=== PATIENT | male | born 1965 | race American Indian/Alaskan Native ===

== ENCOUNTER 2019-10-15 18:20 | Emergency (ER) | payer SELFPAY ==
--- NOTE | 2019-10-15 19:18 | Event Note ---
ED Screening Note ED Screening Note: Mr. Bland is a 54 yo male with hx of tobacco abuse who presents with left leg swelling and erythema. No trauma. This initial assessment/diagnostic orders/clinical plan/treatment(s) is/are subject to change based on patients health status, clinical progression and re- assessment by fellow clinical providers in the ED. Further treatment and workup at subsequent clinical providers discretion. Patient/guardian urged not to elope from the ED as their condition may be serious if not clinically assessed and managed. Initial orders include: labs, duplex
[2019-10-15 19:36] LABS: Basophils # (Auto) 0.1 K/mm3 (0.0-0.1); Basophils % (Auto) 0.8 % (0.0-1.8); Eosinophils # (Auto) 0.1 K/mm3 (0.0-0.4); Lymphocytes # (Auto) 2.4 K/mm3 (1.2-5.4); Lymphocytes % (Auto) 34.6 % (13.4-35.0); Mean Corpuscular HGB Conc 34 % (32-34); Mean Corpuscular Volume 87 fl (84-94); Monocytes # (Auto) 0.8 K/mm3 (0.0-0.8); Monocytes % (Auto) 10.8 % (0.0-7.3); Platelet Count 207 K/mm3 (140-440)
[2019-10-15 19:47] LABS: INR 0.95 (0.87-1.13); Partial Thromboplastin Time 26.8 Sec. (24.2-36.6)
[2019-10-15 19:55] LABS: BUN/Creatinine Ratio 12; Blood Urea Nitrogen 13 mg/dL (9-20); Calcium 8.5 mg/dL (8.4-10.2); Hemolysis Index 6
--- NOTE | 2019-10-15 21:04 | Emergency Department Report ---
<RONY FAULKNER - Last Filed: 10/15/19 21:37> ED Lower Extremity HPI - General Chief Complaint: Extremity Injury, Lower Stated Complaint: LEFT LEG SWOLLEN Time Seen by Provider: 10/15/19 19:16 Source: patient Mode of arrival: Ambulatory Limitations: No Limitations - History of Present Illness Initial Comments: This is a 54-year-old -[place] male who presents to the emergency room with left lower extremity swelling, redness, warmth, and pain for 3 days. No significant past medical history. Current smoker. Patient states he does not recall injury. Reports pain is worse with weightbearing. He denies chest pain, dyspnea, palpitations, cough, fever, chills. MD Complaint: leg injury (left) Onset/Timin -: days(s) Injury: Leg: Left Severity: severe Severity scale (0 -10): 9 Improves With: nothing Worsens With: weight bearing, movement, palpation Associated Symptoms: swelling, able to partially bear weight, ambulatory. denies: snap/pop sensation, numbness, tingling Treatments Prior to Arrival: NSAIDS - Related Data Previous Rx's Medication Instructions Recorded Last Taken Type Acetaminophen/Codeine [Tylenol 1 tab PO Q6H PRN #12 tab 10/15/19 Unknown Rx /Codeine # 3 tab] Sulfamethoxazole/Trimethoprim 1 each PO BID #20 tablet 10/15/19 Unknown Rx [Bactrim DS TAB] Allergies Allergy/AdvReac Type Severity Reaction Status Date / Time No Known Allergies Allergy Unverified 10/15/19 18:23 ED Review of Systems Constitutional: denies: chills, fever Respiratory: denies: cough, shortness of breath, wheezing Cardiovascular: denies: chest pain, palpitations Gastrointestinal: denies: abdominal pain, nausea, diarrhea Musculoskeletal: joint swelling (left lower leg swelling and pain), arthralgia (left calf and lower leg pain). denies: back pain Skin: denies: rash, lesions Neurological: denies: headache, weakness, paresthesias Psychiatric: denies: anxiety, depression Hematological/Lymphatic: denies: easy bleeding, easy bruising ED Past Medical Hx - Past Medical History Previous Medical History?: No - Surgical History Past Surgical History?: Yes Additional Surgical History: Right ankle surgery - Social History Smoking Status: Current Every Day Smoker Substance Use Type: Alcohol - Medications Home Medications: Home Medications Medication Instructions Recorded Confirmed Last Taken Type Acetaminophen/Codeine [Tylenol 1 tab PO Q6H PRN #12 tab 10/15/19 Unknown Rx /Codeine # 3 tab] Sulfamethoxazole/Trimethoprim 1 each PO BID #20 tablet 10/15/19 Unknown Rx [Bactrim DS TAB] ED Physical Exam - General Limitations: No Limitations General appearance: alert, in no apparent distress - Respiratory Respiratory exam: Present: normal lung sounds bilaterally. Absent: respiratory distress - Cardiovascular Cardiovascular Exam: Present: regular rate, normal rhythm. Absent: systolic murmur, diastolic murmur, rubs, gallop - GI/Abdominal GI/Abdominal exam: Present: soft, normal bowel sounds - Extremities Exam Extremities exam: Present: normal inspection, normal capillary refill, pedal edema (left lower extremity), calf tenderness (left lower extremity) - Expanded Lower Extremity Exam Left Hip exam: Present: normal inspection, full ROM Upper Leg exam: Present: normal inspection, full ROM Knee exam: Present: normal inspection, full ROM Lower Leg exam: Present: tenderness (erythema, swelling, and tender to palpation on posterior and anterior tibia-fibula from patella to ankle), swelling, erythema Ankle exam: Present: full ROM, swelling, erythema Foot/Toe exam: Present: full ROM, swelling. Absent: tenderness, abrasion, laceration, ecchymosis, deformity, crepidus, erythema Neuro vascular tendon exam: Present: no vascular compromise. Absent: abnormal cap refill (brisk capillary refill) Gait: Positive: observed and limited by pain - Neurological Exam Neurological exam: Present: alert, oriented X3, normal gait - Psychiatric Psychiatric exam: Present: normal affect, normal mood - Skin Skin exam: Present: warm, dry, intact, normal color. Absent: rash ED Lower Extremity MDM - Lab Data Result diagrams: 10/15/19 19:28 10/15/19 19:28 Lab Results 10/15/19 10/15/19 10/15/19 Range/Units 19:28 19:28 19:28 WBC 7.0 (4.5-11.0) K/mm3 RBC 5.40 H (3.65-5.03) M/mm3 Hgb 16.0 H (11.8-15.2) gm/dl Hct 47.0 H (35.5-45.6) % MCV 87 (84-94) fl MCH 30 (28-32) pg MCHC 34 (32-34) % RDW 15.0 (13.2-15.2) % Plt Count 207 (140-440) K/mm3 Lymph % (Auto) 34.6 (13.4-35.0) % [place] % (Auto) 10.8 H (0.0-7.3) % Eos % (Auto) 2.0 (0.0-4.3) % Baso % (Auto) 0.8 (0.0-1.8) % Lymph # 2.4 (1.2-5.4) K/mm3 [place] # 0.8 (0.0-0.8) K/mm3 Eos # 0.1 (0.0-0.4) K/mm3 Baso # 0.1 (0.0-0.1) K/mm3 Seg Neutrophils % 51.8 (40.0-70.0) % Seg Neutrophils # 3.6 (1.8-7.7) K/mm3 PT 12.8 (12.2-14.9) Sec. INR 0.95 (0.87-1.13) APTT 26.8 (24.2-36.6) Sec. Sodium 140 (137-145) mmol/L Potassium 3.9 (3.6-5.0) mmol/L Chloride 105.4 (98-107) mmol/L Carbon Dioxide 24 (22-30) mmol/L Anion Gap 15 mmol/L BUN 13 (9-20) mg/dL Creatinine 1.1 (0.8-1.5) mg/dL Estimated GFR > 60 ml/min BUN/Creatinine Ratio 12 % Glucose 166 H (75-100) mg/dL Calcium 8.5 (8.4-10.2) mg/dL - Medical Decision Making 54-year-old male who presents to the emergency room with unilateral left leg swelling and pain for 3 days. Nontoxic appearing, VSS. No fluid pockets or fluctuance concerning for abscess noted. Low concern osteomyelitis. Denies shortness of breath, cough, or palpitations for concerns heart failure. A BMP, CBC, and coags were obtained. All labs are unremarkable. A Doppler of left lower extremity was ordered for tomorrow morning. Patient will be given Lovenox for coverage of DVT due to possible suspicion. He will also be started on antibiotics for coverage of cellulitis due to presentation. Given order and instructed to return for Doppler ultrasound in the morning to rule out a DVT. He was also instructed to start taking antibiotics as soon as possible. Patient discharged home with strict return instructions. ED Disposition Clinical Impression: Pain and swelling of left lower leg Cellulitis Qualifiers: Site of cellulitis: extremity Site of cellulitis of extremity: lower extremity Laterality: left Qualified Code(s): L03.116 - Cellulitis of left lower limb Disposition: - TO HOME OR SELFCARE Is pt being admited?: No Condition: Stable Instructions: Cellulitis (ED), Arthralgia (ED) Additional Instructions: Return tomorrow morning for ultrasound arterial left leg to rule out a DVT blood clot. Start taking antibiotics as prescribed as soon as possible. Return to the emergency room if difficulty breathing, cough, or uncontrollable pain. Prescriptions: Sulfamethoxazole/Trimethoprim [Bactrim DS TAB] 1 each PO BID #20 tablet Acetaminophen/Codeine [Tylenol /Codeine # 3 tab] 1 tab PO Q6H PRN #12 tab PRN Reason: Pain , Severe (7-10) Referrals: [facility] [Outside] - 3-5 Days [facility] [Outside] - 3-5 Days [facility] [Outside] - 3-5 Days Forms: Work/School Release Form(ED) Time of Disposition: 21:20 <SERGEY MALLOY - Last Filed: 10/15/19 23:50> ED Review of Systems ROS: Stated complaint: LEFT LEG SWOLLEN Other details as noted in HPI ED Course Vital Signs 10/15/19 10/15/19 18:25 21:57 Temperature 98 F 98.1 F Pulse Rate 92 H 82 Respiratory 20 18 Rate Blood Pressure 145/100 Blood Pressure 138/93 [Right] O2 Sat by Pulse 96 98 Oximetry ED Lower Extremity MDM - Lab Data Result diagrams: 10/15/19 19:28 10/15/19 19:28 Critical care attestation.: If time is entered above; I have spent that time in minutes in the direct care of this critically ill patient, excluding procedure time. ED Disposition Is pt being admited?: No Does the pt Need Aspirin: No
[2019-10-15] MEDS ORDERED: ENOXAPARIN 100 MG/1 ML INJ SUB-Q ONE (21:14)
[2019-10-15 21:58] VITALS: BP 138/93
== END 2019-10-15 21:58 | disposition home or self-care (01) ==
LOC: ED 18:20
DX: L03.116 Cellulitis of left lower limb (principal); F17.200 Nicotine dependence, unspecified, uncomplicated; Z98.890 Other specified postprocedural states
CPT/HCPCS: 36415; 80048; 85025; 85610; 85730; 96372; 99284; J1650

== ENCOUNTER 2019-10-16 18:26 | Emergency (ER) | payer SELFPAY ==
--- NOTE | 2019-10-16 18:43 | Event Note ---
ED Screening Note Date of service: 10/16/19 Time: 18:32 ED Screening Note: 54 y o male presents for DVT on left lower extremity This initial assessment/diagnostic orders/clinical plan/treatment(s) is/are subject to change based on patients health status, clinical progression and re- assessment by fellow clinical providers in the ED. Further treatment and workup at subsequent clinical providers discretion. Patient/guardian urged not to elope from the ED as their condition may be serious if not clinically assessed and managed. Initial orders include: labs main ed eval
--- NOTE | 2019-10-16 19:15 | Vascular Lab Report ---
DUPLEX DOPPLER LOWER EXTREMITY VEINS, LEFT INDICATION: Lower extremity pain and swelling. TECHNIQUE: Duplex doppler imaging was performed through the veins of the left lower extremity using venous compr ession and other maneuvers. COMPARISON: None available. FINDINGS: Common Femoral vein: Negative. Superficial Femoral vein: Positive. Popliteal vein: Positive. Calf veins: Positive but overall poorly identified. Additional findings: None. IMPRESSION: Positive acute DVT within the left lower extremity veins involving the superficial femoral vein and t he popliteal vein, as above. The calf veins were not well identified but I suspect the thrombus exten ds into the posterior tibial vein as well. Signer Name: Hernandez Diamond MD Signed: 10/16/2019 7:11 PM Workstation Name: [id number]
--- NOTE | 2019-10-16 20:05 | Emergency Department Report ---
ED Extremity Problem HPI - General Chief complaint: Extremity Injury, Lower Source: patient Mode of arrival: Wheelchair Limitations: No Limitations - History of Present Illness Initial comments: Patient is a 54-year-old mellitus emergency room for a positive ultrasound. Patient was here yesterday and was seen and had labs done and an outpatient ultrasound was done. The patient came back to the emergency room because his ultrasound was positive. Patient states he is having the same pain. Patient states the pain is better with rest and worse with movement. Patient states he received a shot yesterday. MD Complaint: extremity pain, extremity swelling Location: left, lower extremity History of Same: Yes Radiation: none Severity scale (0 -10): 5 Quality: stabbing Consistency: constant Improves with: elevation, rest Worsens with: weight bearing, walking, exertion Associated Symptoms: denies other symptoms. denies: chest pain, shortness of breath, fever, myalgias, arthralgias, rash - Related Data Previous Rx's Medication Instructions Recorded Last Taken Type Acetaminophen/Codeine [Tylenol 1 tab PO Q6H PRN #12 tab 10/15/19 Unknown Rx /Codeine # 3 tab] Sulfamethoxazole/Trimethoprim 1 each PO BID #20 tablet 10/15/19 Unknown Rx [Bactrim DS TAB] Apixaban [Eliquis starter pack] 5 mg PO BID #1 tab.ds.pk 10/16/19 Unknown Rx Allergies Allergy/AdvReac Type Severity Reaction Status Date / Time No Known Allergies Allergy Unverified 10/15/19 18:23 ED Review of Systems ROS: Stated complaint: Other details as noted in HPI Comment: All other systems reviewed and negative ED Past Medical Hx - Past Medical History Previous Medical History?: No - Surgical History Past Surgical History?: Yes Additional Surgical History: Right ankle surgery - Family History Family history: no significant - Social History Smoking Status: Current Every Day Smoker Substance Use Type: Alcohol - Medications Home Medications: Home Medications Medication Instructions Recorded Confirmed Last Taken Type Acetaminophen/Codeine [Tylenol 1 tab PO Q6H PRN #12 tab 10/15/19 Unknown Rx /Codeine # 3 tab] Sulfamethoxazole/Trimethoprim 1 each PO BID #20 tablet 10/15/19 Unknown Rx [Bactrim DS TAB] Apixaban [Eliquis starter pack] 5 mg PO BID #1 tab.ds.pk 10/16/19 Unknown Rx ED Physical Exam - General Limitations: No Limitations General appearance: alert, in no apparent distress - Head Head exam: Present: atraumatic, normocephalic - Eye Eye exam: Present: normal appearance, PERRL Pupils: Present: normal accommodation - ENT ENT exam: Present: mucous membranes moist - Neck Neck exam: Present: normal inspection - Respiratory Respiratory exam: Present: normal lung sounds bilaterally. Absent: respiratory distress - Cardiovascular Cardiovascular Exam: Present: regular rate, normal rhythm. Absent: systolic murmur, diastolic murmur, rubs, gallop - GI/Abdominal GI/Abdominal exam: Present: soft, normal bowel sounds - Rectal Rectal exam: Present: deferred - Extremities Exam Extremities exam: Present: tenderness, normal capillary refill, pedal edema, calf tenderness - Back Exam Back exam: Present: normal inspection - Neurological Exam Neurological exam: Present: alert, oriented X3 - Psychiatric Psychiatric exam: Present: normal affect, normal mood - Skin Skin exam: Present: warm, dry, intact, normal color. Absent: rash ED Course - Reevaluation(s) Reevaluation #1: I discussed all lab results and ultrasound results with patient. Patient had labs done yesterday and does not need repeat labs today. Patient will receive a prescription FOR ELIQUIS and a Lovenox shot in the ER. Patient is stable for discharge. I discussed plan of care with patient and patient agrees with plan of care. I discussed discharge instructions the patient. Patient voiced understanding of discharge instructions. 10/16/19 20:02 10/16/19 20:19 - Consultations Consultation #1: Status ultrasound with Dr. Carranza, vascular surgery. Dr. Carranza recommends ELIQUIS for DVT 10/16/19 19:36 ED Medical Decision Making - Radiology Data Radiology results: report reviewed DUPLEX DOPPLER LOWER EXTREMITY VEINS, LEFT INDICATION: Lower extremity pain and swelling. TECHNIQUE: Duplex doppler imaging was performed through the veins of the left lower extremity using venous compression and other maneuvers. COMPARISON: None available. FINDINGS: Common Femoral vein: Negative. Superficial Femoral vein: Positive. Popliteal vein: Positive. Calf veins: Positive but overall poorly identified. Additional findings: None. IMPRESSION: Positive acute DVT within the left lower extremity veins involving the superficial femoral vein and the popliteal vein, as above. The calf veins were not well identified but I suspect the thrombus extends into the posterior tibial vein as well. - Medical Decision Making Patient is a 54-year-old male presents for follow-up to his ultrasound. Patient had an ultrasound as an outpatient today. Patient WAS positive so the patient was sent to the ER for management. Patient's ultrasound was discussed with the vascular surgeon. Patient had labs just at yesterday's visit. Patient's labs were reviewed and unremarkable. Patient will be started on ELIQUIS as per recommendations by vascular surgery. - Differential Diagnosis DVT. LEG PAIN. LEG SWELLING Critical care attestation.: If time is entered above; I have spent that time in minutes in the direct care of this critically ill patient, excluding procedure time. ED Disposition Clinical Impression: Pain and swelling of left lower leg Left leg DVT Qualifiers: Affected thrombotic vein of extremity: popliteal Chronicity: acute Qualified Code(s): I82.432 - Acute embolism and thrombosis of left popliteal vein Disposition: TO HOME OR SELFCARE Is pt being admited?: No Does the pt Need Aspirin: No Condition: Stable Instructions: Deep Venous Thrombosis (ED), Leg Edema (ED) Additional Instructions: Patient to follow up with primary care in 2-38. Patient to follow-up with vascular surgery in 2-3 days. Patient to return to ER if condition worsens. Patient to take liquids as directed. Patient to continue all medications. Patient to take Tylenol when necessary for pain. Patient to elevate limb. Prescriptions: Apixaban [Eliquis starter pack] 5 mg PO BID #1 tab.ds.pk Referrals: [facility] MD VIRAL [Primary Care Provider] - 2-3 Days CAROLYN CARRANZA MD [Staff Physician] - 2-3 Days Time of Disposition: 20:05
[2019-10-16] MEDS ORDERED: ENOXAPARIN 100 MG/1 ML INJ SUB-Q ONE (20:30)
[2019-10-16 21:12] VITALS: BP 138/108
== END 2019-10-16 21:32 | disposition home or self-care (01) ==
LOC: ED 18:26 → EDSTATUS 18:28 → ED 21:32
DX: I82.402 Acute embolism and thrombosis of unspecified deep veins of left lower extremity (principal); F17.200 Nicotine dependence, unspecified, uncomplicated; Z98.890 Other specified postprocedural states; Z79.899 Other long term (current) drug therapy
CPT/HCPCS: 93971; 96372; 99283; J1650

== ENCOUNTER 2022-03-25 21:02 | Emergency (ER) | payer SELFPAY ==
--- NOTE | 2022-03-25 21:32 | Emergency Department Report ---
HPI - General Chief Complaint: Sore Throat PUI?: No Time Seen by Provider: 03/25/22 21:11 - HPI HPI: This is a 57-year-old male with a history of a CVA (August 27, 2021, per 's report), right-sided hemiplegia, left craniectomy, severe dysarthria, brought in by his for evaluation of "sore throat." Of note due to patient's severe dysarthria, the patient's states that she will be speaking for him and states "I talk for him because no one can understand him." Patient's states that since he had a stroke approximately 7 months ago, he complains of pain in his throat after he swallows liquids or solids. She states it is not worsened. She states he is able to swallow liquids and solids and his routine crushed pills without difficulty. She states he is not drooling. No falls or trauma no headache no fevers or chills. No dental pain. No nausea vomiting fevers or chills. She states that he ate breakfast and lunch today without difficulty but reports that "sometimes he says his throat hurts after he eats." Patient's states "will this has been going on ever since he had a stroke and I am here to find out what is going on." She denies that the pt has had any recent food containing bones or chunks of meat and/or vegetables. No cough or URI symptoms. He has a gtube but she states it is not used and the pt receives all feeds, directly, by mouth. Unable to assess pain scale secondary to patient's dysarthria. Patient denies any pain at this time by shaking his head. Patient's states he is due to undergo a bone flap by neurosurgery at [facility] on April 04, 2022. His neurosurgeon is Dr. Solitario Sanabria. ED Past Medical Hx - Past Medical History Previous Medical History?: Yes Hx Hypertension: Yes Hx CVA: Yes Hx Deep Vein Thrombosis: Yes (Patient is on Eliquis) - Surgical History Past Surgical History?: Yes Additional Surgical History: Right ankle surgery. Left-sided craniectomy - Social History Smoking Status: Former Smoker - Medications Home Medications: Home Medications Medication Instructions Recorded Confirmed Last Taken Type Acetaminophen/Codeine [Tylenol 1 tab PO Q6H PRN #12 tab 02/01/20 Unknown Rx /Codeine # 3 tab] Sulfamethoxazole/Trimethoprim 1 each PO BID #20 tablet 10/15/19 Unknown Rx [Bactrim DS TAB] Apixaban [Eliquis starter pack] 5 mg PO BID #1 tab.ds.pk 10/16/19 Unknown Rx ED Review of Systems ROS: Stated complaint: THROAT PAIN Other details as noted in HPI Comment: All other systems reviewed and negative Constitutional: no symptoms reported, see HPI. denies: chills, diaphoresis, fever, malaise Eyes: denies: as per HPI, eye pain, eye discharge, vision change ENT: throat pain. denies: as per HPI, ear pain, dental pain, hearing loss Respiratory: no symptoms reported. denies: cough, orthopnea, shortness of breath, SOB with exertion, SOB at rest, stridor, wheezing Cardiovascular: denies: chest pain, palpitations, dyspnea on exertion, orthopnea, edema, syncope, paroxysmal nocturnal dyspnea Endocrine: denies: see HPI, excessive sweating, flushing, intolerance to cold, intolerance to heat, increased hunger, increased thirst, increased urine, unexplained weight gain, unexplained weight loss, other Gastrointestinal: denies: abdominal pain, nausea, vomiting, diarrhea, cons tipation, hematemesis, melena, hematochezia Genitourinary: denies: urgency, dysuria, frequency, hematuria Musculoskeletal: denies: back pain Skin: denies: rash, lesions Neurological: weakness, other (Patient has chronic right-sided hemiparesis secondary to CVA per 's report) Psychiatric: denies: anxiety, depression Physical Exam - Physical Exam Vital Signs: Vital Signs 03/25/22 03/25/22 21:07 21:20 Temperature 98.2 F Pulse Rate 83 Respiratory 18 Rate Blood Pressure 146/112 O2 Sat by Pulse 96 97 Oximetry General: Gen: pt is well appearing, talking persistently, severe dysarthria noted, comfortable, no drooling no stridor no respiratory distress, breathing unlabored, nontoxic-appearing HEENT: Patient noted to have a 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; pupils equally round and reactive to light extraocular muscles intact sclera anicteric, oropharynx grossly unremarkable, tonsils symmetric and nonenlarged, uvula midline without edema, no angioedema no macroglossia no Remigio's angina, dentition grossly unremarkable, no dental abscesses appreciated Neck: Full range of motion, no midline spinal tenderness palpation, no JVD, no carotid bruits, no nuchal rigidity CVS: S1-S2 regular rate and rhythm with no gallops rubs or murmurs, chest wall nontender Pulmonary: Clear to auscultation bilaterally, no wheezes rales or rhonchi Abdomen: Soft nondistended nontender no guarding or rebound tenderness, no palpable deformities or step-offs, normal active bowel sounds, no hepatosplenomegaly, no pulsatile masses, G-tube in place, surrounding skin site is healed dry and intact, no erythema no drainage no tenderness palpation : Deferred Extremities: No cyanosis no clubbing no edema, intact distal peripheral pulses, Integumentary: Skin normal, no petechia no purpura no abscess no lacerations no evidence of trauma no evidence of infection Neuro: Patient is awake, alert, unable to obtain orientation secondary to patient's dysarthria, dense right hemiplegia noted, patient is moving his left upper extremity left lower extremity without difficulty, Psych: Calm cooperative, mood affect normal ED Course Vital Signs 03/25/22 03/25/22 21:07 21:20 Temperature 98.2 F Pulse Rate 83 Respiratory 18 Rate Blood Pressure 146/112 O2 Sat by Pulse 96 97 Oximetry - Reevaluation(s) Reevaluation #1: 03/25/22 21:36 Patient reassessed, he is comfortable and well-appearing, breathing remains calm, nonlabored, he is tolerating his oral secretions without difficulty, we will continue to monitor Reevaluation #2: 03/25/22 22:17 Patient reassessed. He is observed sleeping in his examination bed, he is easily arousable, breathing is nonlabored and he is nontoxic-appearing. Vitals are stable. His airway remains grossly patent and intact. He has no evidence of active or impending airway compromise. Reevaluation #3: 03/25/22 22:43 Patient reassessed. He is awake and sitting up in his stretcher. Patient and updated concerning the read radiologit's x-ray findings. They continue to await the resulting of his rapid stress test. If all is negative plan will be to send the patient home and advised the patient's to have him follow-up with his neurosurgeon and/or primary care doctor for further evaluation given the chronicity of the patient's symptoms as well as his persistently well and asymptomatic condition while here. Reevaluation #4: 03/25/22 23:20 Pt reassessed. He is awake, and comfortable appearing. He is dysarthric but tolerating his oral secretions without difficulty, he has no drooling no stridor or respiratory distress. Patient stable for discharge to home ED Medical Decision Making - Radiology Data Radiology results: report reviewed - Medical Decision Making 57-year-old male with multiple medical comorbidities brought in by his for which she states is approximately 6 to 7 months of intermittent throat pain after he swallows food. Patient's repeatedly denies through HPI that the patient is complaining of worsening pain or has been manifesting any difficulty with swallowing solids, crush pills, or liquids and she repeatedly denies that he has been having any difficulty breathing shortness of breath chest pain or changes in his mental status. Vitals here are stable. Patient is chronically ill but otherwise well-appearing on examination. Physical exam reveals no obvious findings with respect to his oropharyngeal examination. He has no nuchal rigidity, no trismus, and there are no visible foreign bodies in his oropharynx. Remainder fork fork pharynx exam is grossly unremarkable otherwise. Per my clinical assessment there is no necessity in obtaining serum lab analysis as the patient's HPI and physical examination do not support the necessity of these serum lab values being evaluated at this time in the setting of the patient's ongoing complaint times the past 6 to 7 months. X-ray soft tissue neck demonstrates no acute pathology per reading radiologist. Rapid strep test is negative. No further emergent work-up warranted at this time. Patient stable for discharge to home. Patient's advised to have the patient follow-up with his neurosurgeon and/or primary care doctor for reassessment given that the patient's symptoms are chronic and per her report have been ongoing since he had a stroke in 2020. Prior to discharge she was given strict verbal and written return precautions. Yayo's verbalized understanding and agreement the plan of care. Critical Care Time: No Critical care attestation.: If time is entered above; I have spent that time in minutes in the direct care of this critically ill patient, excluding procedure time. ED Disposition Clinical Impression: Pharyngitis Disposition: HOME / SELF CARE / HOMELESS Is pt being admited?: No Does the pt Need Aspirin: No Condition: Stable Instructions: Sore Throat, [id number] Additional Instructions: The cause of your 's ongoing symptoms is unclear. It is strongly advised that you follow-up with his neurosurgeon and/or primary care doctor to schedule immediate follow-up appointment for reassessment and also to discuss this issue. Given that it has been ongoing for several months, your may need to be referred by his primary care doctor to a comfort station supervisor for further testing. Please continue to avoid any large chunks of solid food such as meat and/or vegetables. Continue to give him plenty of fluids for hydration. If he develops soreness of his throat, consider using over the counter Chloraseptic throat spray. Observe his symptoms very carefully. Return to the nearest emergency department as soon as possible if he develops shortness of breath, difficulty breathing, chest pain, difficulty swallowing his saliva, any drooling, changes in mental status, or if any other new worrisome symptoms develop. Time of Disposition: 23:20
--- NOTE | 2022-03-25 22:06 | XRay Report ---
NECK SOFT TISSUE 2 VIEW(S) INDICATION / CLINICAL INFORMATION: hx of stroke, dysphagia, p/w sore throat s/p eating COMPARISON: None available. FINDINGS: EPIGLOTTIS: No significant abnormality. RETROPHARYNGEAL SOFT TISSUES: No significant abnormality. AIRWAY: No significant abnormality. RADIOPAQUE FOREIGN BODY: None. SKELETAL SYSTEM: Mild multilevel cervical spondylosis. ADDITIONAL FINDINGS: None. IMPRESSION: 1. No acute findings. Signer Name: Larisa Jeffrey MD Signed: 03/25/2022 10:02 PM Workstation Name: [id number]
[2022-03-25 23:31] VITALS: BP 160/90
== END 2022-03-25 23:21 | disposition home or self-care (01) ==
LOC: ED 21:02
DX: J02.9 Acute pharyngitis, unspecified (principal); I10 Essential (primary) hypertension; Z86.73 Personal history of transient ischemic attack (TIA), and cerebral infarction without residual deficits; I82.409 Acute embolism and thrombosis of unspecified deep veins of unspecified lower extremity; Z98.890 Other specified postprocedural states; Z87.891 Personal history of nicotine dependence
CPT/HCPCS: 70360; 87116; 87430; 99284